=== PATIENT | male | born 1980 | race Caucasian/White ===

== ENCOUNTER 2024-09-06 15:43 | Emergency (ER) | payer OTHER, SELFPAY ==
[2024-09-06 15:48] VITALS: BP 141/73; PULSE 75; RESP 18; TEMP 36.2; O2SAT 100
--- NOTE | 2024-09-06 16:14 | ED.WEAKNESS ---
HPI - Weakness General Chief complaint: Weakness Stated complaint: nausea, back pain, BUE weakness Time Seen by Provider: 09/06/24 16:14 Focused HPI: Patient is a 44-year-old male who presents the ED with report of upper back pain, lightheadedness. Patient reports he woke up this morning feeling somewhat weak and fatigued. Around 12 30-1 p.m. he began having sudden onset of nausea, dizziness, lightheadedness. He did not vomit, but felt the urge to. He then began noticing pain in his mid to upper back between his shoulder blades. Pain is constant. Worse with deep breathing. Denies feeling significantly SOB. He also reports having L sided ANDRADE, paresthesias in his bilateral upper arms, slightly worse in the left arm. States his arms feel weak overall. Denies weakness of the legs. Denies chest pain. Denies hx of blood clots. Denies HTN, HLD, DM. GENERAL: Well-appearing, well-nourished, and in no acute distress. HEAD: Normocephalic, atraumatic. CHEST: Clear to auscultation. ?No respiratory distress. Occasional rhonchi in lower lungs tony HEART: Regular rate and rhythm.? NEURO: ?Alert and oriented x3. Patient screened in triage and initial orders placed.? ?Additional care and disposition to be based upon?diagnostic testing and treatment. Source: patient Mode of arrival: ambulatory Limitations: no limitations Related Data Home Medications Medication Instructions Recorded Confirmed cholecalciferol (vitamin D3) 125 125 mcg PO DAILY 11/24/21 11/24/21 mcg (5,000 unit) capsule Allergies Allergy/AdvReac Type Severity Reaction Status Date / Time Penicillins Allergy Unknown Other Verified 11/24/21 10:53 [facility] Past Medical History Medical History Anxiety Crohn's colitis IBS (irritable bowel syndrome) Social History Social History Smoking packs per day: 1 Smoking cigarettes per day: 20.0 Smoking status: Current every day smoker Tobacco type: cigarettes Alcohol intake: current Alcohol use details: social Substance use: current Substance use type: marijuana Course Vital Signs Vital signs: Vital Signs Temperature 97.2 F L 09/06/24 15:48 Pulse Rate 75 09/06/24 15:48 Respiratory Rate 18 09/06/24 15:48 Blood Pressure 141/73 H 09/06/24 15:48 Pulse Oximetry 100 09/06/24 15:48 Oxygen Delivery Room Air 09/06/24 15:48 Temperature 97.2 F L 09/06/24 15:48 Pulse Rate 75 09/06/24 15:48 Respiratory Rate 18 09/06/24 15:48 Blood Pressure 141/73 H 09/06/24 15:48 Pulse Oximetry 100 09/06/24 15:48 Oxygen Delivery Room Air 09/06/24 15:48 MDM - Weakness MDM Narrative Medical decision making narrative: MSE by DARRELL in triage. Patient left the facility after initial MSE. ED nurse and myself discussed risks of leaving without complete evaluation and was advised that he can return at any time to resume evaluation. VSS at time of leaving facility. Medical Records Attestation: I reviewed the patient's medical records. Lab Data 09/06/24 16:46 09/06/24 16:46 Labs: Lab Results 09/06/24 Range/Units 16:46 WBC 8.5 (4.5-10.0) K/mm3 RBC 5.27 (4.6-6.20) M/mm3 Hgb 16.1 (14.0-18.0) g/dL Hct 46.2 (42.0-52.0) % MCV 87.7 (80-100) fl MCH 30.6 (26-34) pg MCHC 34.8 (32-36) g/dl RDW 12.0 (11.5-14.5) % Plt Count 234 (150-375) k/mm3 MPV 8.8 (7.4-10.4) fl Immature Gran % (Auto) 0.2 (0-0.5) % Neut % (Auto) 48.2 (45.5-73.1) % Lymph % (Auto) 39.0 (18.3-44.2) % [place] % (Auto) 7.6 (2.6-8.5) % Eos % (Auto) 4.1 (0-4.4) % Baso % (Auto) 0.9 (0.2-1.2) % Lymph # (Auto) 3.32 H (0.9-3.2) K/mm3 [place] # (Auto) 0.7 H (0.1-0.6) K/mm3 Eos # (Auto) 0.4 H (0-0.3) K/mm3 Baso # (Auto) 0.1 (0.0-0.1) K/mm3 Abs Immat Gran (auto) 0.02 (0.00-0.031) K/mm3 Absolute Neuts (auto) 4.1 (1.3-6.7) K/mm3 Absolute Nucleated RBC 0.000 (0.0-0.012) K/mm3 Nucleated RBC % 0.0 (0.0-0.2) % PT 12.9 (11.1-14.7) Seconds INR 0.9 APTT 27.0 (22.3-36.8) Seconds Sodium 135 L (137-145) mmol/L Potassium 4.1 (3.4-5.0) mmol/L Chloride 104 (98-107) mmol/L Carbon Dioxide 27 (22-30) mmol/L Anion Gap 4 (4-12) mmol/L BUN 12 (9-20) mg/dL Creatinine 0.80 (0.7-1.3) mg/dL Estim Creat Clear Calc 110 ml/min Estimated GFR > 60 (59 - ) Glucose 98 (65-110) mg/dL Calcium 9.3 (8.4-10.2) mg/dL Total Bilirubin 0.5 (0.2-1.3) mg/dL AST 25 (17-59) U/L ALT 30 (6-50) U/L Alkaline Phosphatase 77 (38-126) U/L Troponin I < 0.012 (0.000-0.034) ng/mL NT-Pro-B Natriuret Pep < 20 (19.9-100) pg/mL Total Protein 7.0 (6.3-8.2) g/dL Albumin 4.6 (3.5-5.1) g/dL Discharge Plan Discharge Clinical Impression: Nausea, Upper back pain, Lightheadedness Patient Disposition: Left Without Being Sn Triaged Prescriptions: No Action cholecalciferol (vitamin D3) 125 mcg (5,000 unit) capsule 125 mcg PO DAILY Follow-up/Referrals: Crystal Haynes APRN [Primary Care Provider] -
--- NOTE | 2024-09-06 16:20 | ECG_ITS ---
Test Date: 2024-09-06 16:42:58 Measurements Intervals [place] Rate: 77 P: 35 DE: 151 QRS: 65 QRSD: 82 T: 51 QT: 365 QTc: 413 Interpretive Statements SINUS RHYTHM No previous ECG available for comparison Electronically Signed On 09-07-2024 12:27:23 [facility] [employer] by Keshawn Harris M.D.
[2024-09-06 17:14] LABS: Basophils Absolute Auto 0.1 K/mm3 (0.0-0.1); Basophils Percent Auto 0.9 % (0.2-1.2); Eosinophils Absolute Auto 0.4 K/mm3 (0-0.3); Eosinophils Percent Auto 4.1 % (0-4.4); Hematocrit 46.2 % (42.0-52.0); Hemoglobin 16.1 g/dL (14.0-18.0); Immature Granulocyte Absolute 0.02 K/mm3 (0.00-0.031); Immature Granulocyte Percent A 0.2 % (0-0.5); Lymphocytes Absolute Auto 3.32 K/mm3 (0.9-3.2); Mean Corpuscular HGB Conc 34.8 g/dl (32-36); Mean Corpuscular Hemoglobin 30.6 pg (26-34); Mean Corpuscular Volume 87.7 fl (80-100); Mean Platelet Volume 8.8 fl (7.4-10.4); Monocytes Absolute Auto 0.7 K/mm3 (0.1-0.6); Monocytes Percent Auto 7.6 % (2.6-8.5); Neutrophils Absolute Auto 4.1 K/mm3 (1.3-6.7); Neutrophils Percent Auto 48.2 % (45.5-73.1); Platelet Count Result 234 k/mm3 (150-375); Red Blood Count 5.27 M/mm3 (4.6-6.20); White Blood Count 8.5 K/mm3 (4.5-10.0)
[2024-09-06 17:26] LABS: INR 0.9; Prothrombin Time 12.9 Seconds (11.1-14.7)
[2024-09-06 17:32] LABS: Alanine Aminotransferase 30 U/L (6-50); Albumin Level 4.6 g/dL (3.5-5.1); Alkaline Phosphatase 77 U/L (38-126); Anion Gap 4 mmol/L (4-12); Aspartate Amino Transferase 25 U/L (17-59); Bilirubin,Total 0.5 mg/dL (0.2-1.3); Blood Urea Nitrogen 12 mg/dL (9-20); Calcium 9.3 mg/dL (8.4-10.2); Carbon Dioxide 27 mmol/L (22-30); Chloride 104 mmol/L (98-107); Estimated CRCL calculation 110 ml/min; Estimated Glomerular Filt Rate > 60; Glucose 98 mg/dL (65-110); Potassium 4.1 mmol/L (3.4-5.0); Sodium 135 mmol/L (137-145)
[2024-09-06 17:44] LABS: NT Pro B Type Natriuretic Pept < 20 pg/mL (19.9-100); Troponin I < 0.012 ng/mL (0.000-0.034)
--- NOTE | 2024-09-06 17:54 | PC.NURSE ---
Pt presented to triage desk stating that he was wanting to leave. Pt reports his symptoms are improving, and he does not feel the need to have a further work up due to feeling better, and is not wanting to continue to wait for a room. Pt educated on risks of leaving prior to completing workup. Pt verbalized understanding, reports he still wishes to leave, but will return to ED if his symptoms worsen. IV removed. Pt A&Ox4, ambulatory upon leaving ED.
== END 2024-09-06 17:54 | disposition left against medical advice (07) ==
PROVIDERS: Emergency Provider Physician Assistant; PCP Nurse Practitioner Family
DX: R42 Dizziness and giddiness (principal); M54.6 Pain in thoracic spine; R11.0 Nausea; K50.90 Crohn's disease, unspecified, without complications; F17.210 Nicotine dependence, cigarettes, uncomplicated
CPT/HCPCS: 36415; 80053; 83880; 84484; 85025; 85610; 85730; 93005; 99199; 99284